=== PATIENT | female | born 1965 | race African-American/Black ===

== ENCOUNTER 2021-03-29 01:38 | Emergency (ER) | payer OTHER ==
[~2021-03-29] VITALS: Ht 165.1 cm; Wt 114.0 kg
[2021-03-29] MEDS ORDERED: ACETAMINOPHEN 500 MG TABLET ONE (01:54)
[2021-03-29] MEDS ORDERED: ACETAMINOPHEN 500 MG TABLET PO ONE (02:00)
[2021-03-29 04:05] VITALS: BP 148/97
--- NOTE | 2021-03-29 04:08 | NUR ---
Patient/Caregiver given discharge instructions and they have confirmed that they understand the instructions. Patient ambulatory with steady gait. NAD, all questions answered appropriately, denies additional needs at this time. No personal belongings left in room after discharge.
== END 2021-03-29 04:09 | disposition home or self-care (01) ==
LOC: ED 02:00
DX: S20.211A Contusion of right front wall of thorax, initial encounter (principal); W01.0XXA Fall on same level from slipping, tripping and stumbling without subsequent striking against object, initial encounter; Y93.89 Activity, other specified; Y92.89 Other specified places as the place of occurrence of the external cause; Y99.8 Other external cause status
CPT/HCPCS: 99283